=== PATIENT | male | born 1945 | race Caucasian/White ===

== ENCOUNTER 2021-02-17 11:21 | Inpatient (IN) | payer MEDICARE, SELFPAY ==
--- NOTE | ~2021-02-17 | CT_ITS ---
EXAMINATION: CT HEAD WITHOUT CONTRAST CLINICAL INFORMATION: Syncope. Rule out intracranial hemorrhage. COMPARISON: None TECHNIQUE: Contiguous axial imaging was performed from the skull base to vertex without intravenous administration of contrast. This CT examination was performed using dose optimization techniques as appropriate, variously including the following: *Automated exposure control *Adjustment of mA and/or kV according to patient size (this includes techniques or standardized protocols for targeted exams where dose is matched to indication/reason for exam; i.e. extremities or head) *Use of iterative reconstruction technique DLP: 795 mGy-cm FINDINGS: There is no evidence of acute intracranial hemorrhage or territorial infarction. No abnormal mass effect or midline shift is seen. Rahman to white matter differentiation is well preserved. No extra-axial fluid collections are identified. The lateral ventricles are symmetrical in size but mildly enlarged. Mild perivesical hypodensity seen in both cerebral hemispheres without mass effect. The osseous structures and soft tissues are normal. The mastoid air cells and visualized portions of the paranasal sinuses are well aerated. CT/CT head/brain wo con IMPRESSION: No acute intracranial process seen.
--- NOTE | ~2021-02-17 | XR_ITS ---
EXAMINATION: XR chest 2V CLINICAL INFORMATION: Reason for Exam syncope, SOB COMPARISON: No prior chest x-ray available in our system for comparison at the time of this dictation. TECHNIQUE: XR chest 2V Lungs and Liat: Both lungs are clear. Pleura: Normal. Costophrenic angles are sharp. No pneumothorax. Heart: The heart is normal in size. Mediastinum: The mediastinum is within normal limits.. Bones: Skeletal structures included are normal for patient's age. XR/XR chest 2V IMPRESSION: Normal chest x-ray.
--- NOTE | ~2021-02-17 | CT_ITS ---
EXAMINATION: CT CHEST ANGIOGRAM PE PROTOCOL CLINICAL INFORMATION: , Reason for Exam Syncope r/o PE COMPARISON: None TECHNIQUE: Volumetric imaging was performed through the chest. Reformatted coronal and sagittal imaging was performed. 3-D MIP images performed at a dedicated separate workstation. This CT examination was performed using dose optimization techniques as appropriate, variously including the following: *Automated exposure control *Adjustment of mA and/or kV according to patient size (this includes techniques or standardized protocols for targeted exams where dose is matched to indication/reason for exam; i.e. extremities or head) *Use of iterative reconstruction technique CONTRAST: 65 mL Omnipaque 350 injected DLP: 195 FINDINGS: PULMONARY ARTERIES: Ill-defined filling defect in a branch of the right pulmonary artery to the right upper lobe concerning for possible subacute embolus versus artifact. Image 210 series 19. Ill-defined hypodense area within the right pulmonary artery to the right lower lobe on image 339 series 19 indeterminant and could be artifact versus nonocclusive embolus. There is also probably a small nonocclusive embolus in a branch of left pulmonary artery to left lower lobe, refer image of 327 series 19. LINES/TUBES: None LUNGS: Lung Parenchyma: There is no CT evidence of significant lung parenchymal disease. Lung Nodules:There are no significant lung nodules. AIRWAYS: Trachea and bronchi are normal. PLEURA: No pleural effusion or pneumothorax. MEDIASTINUM AND BRANDON: The visualized thyroid gland is unremarkable. No mediastinal, hilar or axillary lymphadenopathy. There is no mediastinal mass. VESSELS: Thoracic aorta is normal in size. HEART AND PERICARDIUM: Heart is normal in size. There is no pericardial effusion. There are coronary calcifications. CHEST WALL, LOWER NECK, SURROUNDING SOFT TISSUES: Normal VISUALIZED ABDOMEN: There is a 3 cm cystic structure partially included on this CT chest, otherwise unremarkable. BONES: The visualized bony thorax is within normal limits. CT/CT angio chest PE protocol IMPRESSION: 1. Positive PE, there are multiple Small nonocclusive emboli could be old. Some of which are artifactual. Díaz images. 2. No CT evidence of cardiac strain or pulmonary infarcts. 3. There is a 3 cm cystic structure partially included left kidney could be a renal cyst, consider correlation with follow-up renal ultrasound. (Referring physician staff is being called, to be alerted of the above findings and recommendations.) Ramon Euceda
--- NOTE | ~2021-02-17 | US_ITS ---
EXAMINATION: US VENOUS ULTRASOUND WITH DOPPLER LOWER EXTREMITY, BILATERAL CLINICAL INFORMATION: Bilateral legs appear negative for DVT COMPARISON: None TECHNIQUE: Ultrasound of the deep veins is performed from the hip to the calf with compression sonography and color and pulse Doppler assessment. Spectral analysis with color-flow imaging is performed. FINDINGS: RIGHT: There is normal venous compression and respiratory variation and augmented flow. The visualized common femoral vein, superficial femoral vein, profunda femoral vein, popliteal vein, and the trifurcation region shows no evidence of deep venous thrombosis. There is no significant popliteal fossa cyst. LEFT: There is normal venous compression and respiratory variation and augmented flow. The visualized common femoral vein, superficial femoral vein, profunda femoral vein, popliteal vein, and the trifurcation region shows no evidence of deep venous thrombosis. There is no significant popliteal fossa cyst. If the patient's symptoms persist, followup ultrasound in 5 days 7 days might be of value to exclude proximal propagation from a non-visualized calf vein. US/US venous duplex LE BI IMPRESSION: No DVT demonstrated in the bilateral lower extremity.
--- NOTE | 2021-02-17 11:36 | ECG_ITS ---
Test Reason : SYNCOPY Blood Pressure : / mmHG Vent. Rate : 063 BPM Atrial Rate : 063 BPM P-R Int : 180 ms QRS Dur : 104 ms QT Int : 422 ms P-R-T Axes : 051 -08 035 degrees QTc Int : 431 ms Normal sinus rhythm Normal ECG No previous ECGs available Referred By: Pat Jimenez Electronically Signed By:AUREA ASHRAF
--- NOTE | 2021-02-17 11:38 | ED_ITS ---
HPI - Syncope General Chief Complaint: Syncope Stated Complaint: syncopal episodes Time Seen by Provider: 02/17/21 11:36 Source: patient Mode of arrival: ambulatory Limitations: no limitations History of Present Illness HPI narrative: 75-year-old male pmhx significant for DM, HTN, HLD presents to the ED with near syncope X1 syncope X1 prior to his arrival. According to patient's daughter she was outside, cutting wood, she states he claims he became dizzy, like he could not balance, he also became very sweaty and sat down. After sitting down, he leaned up against a tree, and fell over to the ground. She states he did not hit his head, he did not lose consciousness however he appeared confused and sweaty. Once the ambulance arrived, he syncopized on the stretcher, EMS states that they gave him a sternal rub, which awoke him. He states he is feeling fine, however, he states he is a little more sweaty than usual. He is usually very active, and has never had this happen to him in the past. He denies shortness of breath, chest pain, nasuea, vomiting, headaches, vision changes, weakness, fevers, and chills. MD complaint: other (syncope) Prodromal symptoms: lightheaded Witnessed: Yes - by Bystander (daughter ) Context: at rest Injuries sustained associated with event: none Related Data Home Medications Medication Instructions Recorded Confirmed atorvastatin 20 mg tablet 1 tab PO BEDTIME 02/17/21 02/17/21 brimonidine 0.2 % eye drops 1 drp OPHTHALMIC (EYE) Q12H 02/17/21 02/17/21 lisinopril 20 1 tab PO DAILY 02/17/21 02/17/21 mg-hydrochlorothiazide 12.5 mg tablet metformin 500 mg tablet,extended 1 tab PO BID 02/17/21 02/17/21 release 24 hr Allergies Allergy/AdvReac Type Severity Reaction Status Date / Time No Known Allergies Allergy Unverified 02/02/20 15:19 [No Known Allergies*] Review of Systems Review of Systems: Yes all other systems are reviewed and are negative Constitutional: Constitutional: Reports no additional constitutional complaints, Denies body ache(s), Denies chills, Reports excessive sweating, Denies fever(s), Denies headache(s) and Denies weakness Eyes: Eyes: Reports no additional eye complaints and Denies change in vision ENT: Reports system reviewed and no additional complaints, except as documented, Reports dizziness, Denies headache(s), Denies nasal congestion, Denies nasal discharge and Denies neck pain Cardiovascular: Cardiovascular: Reports no additional cardiovascular complaints, Denies chest pain, Reports syncope, Denies leg edema and Denies dyspnea Respiratory: Respiratory: Reports no additional respiratory complaints, Denies cough and Denies dyspnea Gastrointestinal: Gastrointestinal: Reports no additional gastrointestinal complaints, Denies abdominal pain, Denies diarrhea, Denies nausea and Denies vomiting Genitourinary: Genitourinary: Denies urinary incontinence Musculoskeletal: Musculoskeletal: Reports no additional musculoskeletal complaints, Denies back pain, Denies arthralgias, Denies joint swelling, Denies neck pain, Denies numbness and Denies tingling Integumentary/Breasts: Skin/Breast: Reports system reviewed and no additional complaints, except as docu and Denies rash Neurologic: Reports system reviewed and no additional complaints, except as documented, Denies Abnormal speech present, Reports dizziness, Reports syncope, Denies headache(s), Denies numbness, Denies tingling and Denies weakness Endocrine: Endocrine: Reports excessive sweating PMFSH Past Medical History Attestation statement: The following information was validated with the patient. Source: old records reviewed and nursing notes reviewed Medical History (Updated 02/17/21 @ 17:04 by Pat Jimenez NP) Diabetes mellitus H/O: HTN (hypertension) Hyperlipidemia Surgical History (Updated 02/17/21 @ 16:45 by Jena Blackmon NP) H/O hernia repair S/P cataract extraction and insertion of intraocular lens Family History Family History (Updated 02/17/21 @ 16:45 by Jena Blackmon NP) Mother Hemorrhagic stroke Father Coronary artery disease Social History Social History (Updated 02/17/21 @ 16:45 by Jena Blackmon NP) Household Members: Spouse Alcohol intake: never Patient Tobacco Use Status: Never used Tobacco Use of substances other than those prescribed or required for medical reasons: No Advance Directives: Yes Advance Directives on File: No Physical Exam Vital Signs: Vital Signs: Last Vital Signs Temp 97.8 F 02/17/21 14:44 Pulse 67 02/17/21 14:44 Resp 19 02/17/21 14:44 BP 116/56 L 02/17/21 14:44 Pulse Ox 98 02/17/21 14:44 Body Mass Index 31.8 Const: General: cooperative, no acute distress, tired appearing and other (diaphoretic ) Nutritional Appearance: obese Orientation/consciousness: patient oriented x3 Limitations: no limitations HENMT: Head: Yes normal to inspection Ears: hearing grossly normal bilaterally General nose exam: Normal external nose present Face and sinus: Yes normal facial exam Mouth: Normal oral and palatal mucosa present Throat: Yes posterior oropharynx normal Eyes: General: appearance normal, both eyes and all related structures Pupils: Equal, round and reactive pupils present Neck: Neck: Yes normal visual inspection Chest: Chest palpation & inspection: normal inspection of the chest Resp: Effort & Inspection: normal respiratory effort Auscultation: clear to auscultation bilaterally Cardio: Rate: regular rate Rhythm: regular rhythm Peripheral pulses: Peripheral pulses 2+ throughout GI: Inspection: Yes normal to inspection Palpation (GI): Soft to palpation and nontender Auscultation: normal bowel sounds Back/Spine/Pelvis: Thoracic/Lumbar Spine: thoracic and lumbar spine normal to inspection Skin: General skin exam: no rashes or lesions noted and other (diaphoretic ) Neuro: General: patient oriented x3, no focal motor deficits and normal sensation to monofilament Cranial nerves: Yes Equal, round and reactive pupils present Cognition (Neuro): normal cognition Speech: No Abnormal speech present Gait exam (Neuro): Normal gait present Motor exam (neuro): 5/5 motor strength present throughout and Pronator motor function not present Coordination: [id number] test normal and [id number] test normal Extrem: General: Yes normal to inspection Course Course Course Narrative: 75-year-old male pmhx significant for DM, HTN, HLD presents to the ED with one episode of near sycnope and one episode of syncope. He reports that he felt dizzy while outside cutting wood and he had to sit down and take a break at that point he had his near syncopal episode. He syncopized while on the stretcher with EMS, necessitating a sternal rub to wake him up. At this time he reports no SOB,CP,YUSUF, vision changes. He does however note he is more sweaty than usual. He did not fall or hit his head. Upon physical examination diaphoresis is noted. He is alert and oriented x3 Low MAP X2. patient is alert and oriented. This is likely secondary to dehydration and or orthostasis. Not concerned for infection at this time, he is currently afibrile no elevated WBC count. Reevaluation(s) Reevaluation #1: CTA positive for multiple small PE, no evidence of saddle PE. Second trop pending. Will give 90 mg of SQ lovenox now. Plan is to admit the patient for syncope and new PE. This is likely not ACS, EKG is normal and patient still denies chest pain and states he never felt pain in his chest. Time: 15:22 Reevaluation #2: Second troponin 12.9 Will admit this patient for PE and syncope. MDM - Syncope MDM Narrative Medical decision making narrative: At this time it is unclear why the patient had a syncopal episode. For this reason a full work up will be done. Will rule out ACS, PE, ICH, electrolyte abnormalities, dysrhythmia, and anemia. Fluids will also be ordered and a POC will be done to r/o hypoglycemia. Medical Records Attestation: I reviewed the patient's medical records. Lab Data Attestation: I reviewed the patient's lab results. Result diagrams: 02/17/21 12:09 02/17/21 12:09 Labs: Lab Results 02/17/21 02/17/21 02/17/21 Range/Units 12:09 12:09 12:09 WBC 10.0 (4.8-10.8) X10*3/uL RBC 4.63 (4.60-5.80) X10*6/uL Hgb 12.9 L (14.0-18.0) g/dl Hct 38.3 L (42-52) % MCV 82.7 (80-98) fL MCH 27.9 (27.0-33.0) pg MCHC 33.7 (31.0-36.0) g/dl RDW 12.6 (11.0-16.0) % Plt Count 204 (160-400) X10*3/uL MPV 8.9 L (9.4-12.4) fL Immature Gran % (Auto) 0.5 H (0.0-0.4) % Neut % (Auto) 73.7 H (45-73) % Lymph % (Auto) 19.6 L (20-40) % [place] % (Auto) 5.3 (2-11) % Eos % (Auto) 0.7 (0-4) % Baso % (Auto) 0.2 (0-2) % Lymph # (Auto) 2.0 (1.2-4.9) X10*3/uL [place] # (Auto) 0.5 (0.1-1.2) X10*3/uL Eos # (Auto) 0.1 (0.0-0.4) X10*3/uL Baso # (Auto) 0.0 (0.0-0.2) X10*3/uL Abs Immat Gran (auto) 0.05 H (0.00-0.03) X10*3/uL Absolute Neuts (auto) 7.4 (2.0-8.3) X10*3/uL Absolute Nucleated RBC 0.000 (0.0-0.012) X10*3/uL Nucleated RBC % (auto) 0.0 (0.0-0.2) /100WBC PT (9.9-13.0) SEC INR (0.9-1.1) APTT (24.1-38.0) SEC Sodium 140 (135-145) mmol/L Potassium 3.5 (3.3-5.1) mmol/L Chloride 103 (96-108) mmol/L Carbon Dioxide 25 (22-29) mmol/L Anion Gap 16 (12-20) BUN 18 H (9-16) mg/dL Creatinine 1.14 (0.5-1.4) mg/dL Estim Creat Clear Calc 59.6 Estimated GFR > 60 Random Glucose 177 H (60-115) mg/dL Calcium 9.5 (8.4-10.2) mg/dL Magnesium 1.5 L (1.6-2.6) mg/dL Total Bilirubin 0.7 (0.0-1.0) mg/dL Direct Bilirubin 0.3 (0.0-0.5) mg/dL AST 22 (5-37) U/L ALT 35 (0-40) U/L Alkaline Phosphatase 48 (39-117) U/L Troponin I High Sens 6.4 (<3.5-35.0) ng/L Total Protein 6.7 (6.5-8.0) g/dL Albumin 4.2 (3.5-5.0) g/dL Urine Color Urine Appearance Urine pH (5.0-8.0) Ur Specific [place] (1.005-1.025) Urine Protein (NEG-TRACE) MG/DL Urine Glucose (UA) (NEG) MG/DL Urine Ketones (NEG) MG/DL Urine Blood (NEG) Urine Nitrite (NEG) Ur Leukocyte Esterase (NEG) COVID-19 (ADONAY) (Negative) COVID-19 Clin Com 02/17/21 02/17/21 02/17/21 Range/Units 12:09 15:05 15:10 WBC (4.8-10.8) X10*3/uL RBC (4.60-5.80) X10*6/uL Hgb (14.0-18.0) g/dl Hct (42-52) % MCV (80-98) fL MCH (27.0-33.0) pg MCHC (31.0-36.0) g/dl RDW (11.0-16.0) % Plt Count (160-400) X10*3/uL MPV (9.4-12.4) fL Immature Gran % (Auto) (0.0-0.4) % Neut % (Auto) (45-73) % Lymph % (Auto) (20-40) % [place] % (Auto) (2-11) % Eos % (Auto) (0-4) % Baso % (Auto) (0-2) % Lymph # (Auto) (1.2-4.9) X10*3/uL [place] # (Auto) (0.1-1.2) X10*3/uL Eos # (Auto) (0.0-0.4) X10*3/uL Baso # (Auto) (0.0-0.2) X10*3/uL Abs Immat Gran (auto) (0.00-0.03) X10*3/uL Absolute Neuts (auto) (2.0-8.3) X10*3/uL Absolute Nucleated RBC (0.0-0.012) X10*3/uL Nucleated RBC % (auto) (0.0-0.2) /100WBC PT (9.9-13.0) SEC INR (0.9-1.1) APTT (24.1-38.0) SEC Sodium (135-145) mmol/L Potassium (3.3-5.1) mmol/L Chloride (96-108) mmol/L Carbon Dioxide (22-29) mmol/L Anion Gap (12-20) BUN (9-16) mg/dL Creatinine (0.5-1.4) mg/dL Estim Creat Clear Calc Estimated GFR Random Glucose (60-115) mg/dL Calcium (8.4-10.2) mg/dL Magnesium (1.6-2.6) mg/dL Total Bilirubin (0.0-1.0) mg/dL Direct Bilirubin (0.0-0.5) mg/dL AST (5-37) U/L ALT (0-40) U/L Alkaline Phosphatase (39-117) U/L Troponin I High Sens 12.9 D (<3.5-35.0) ng/L Total Protein (6.5-8.0) g/dL Albumin (3.5-5.0) g/dL Urine Color YELLOW Urine Appearance CLEAR Urine pH 5.5 (5.0-8.0) Ur Specific [place] 1.010 (1.005-1.025) Urine Protein NEG (NEG-TRACE) MG/DL Urine Glucose (UA) NEG (NEG) MG/DL Urine Ketones 5 (NEG) MG/DL Urine Blood NEG (NEG) Urine Nitrite NEG (NEG) Ur Leukocyte Esterase NEG (NEG) COVID-19 (ADONAY) Negative (Negative) COVID-19 Clin Com See Note 02/17/21 Range/Units 16:00 WBC (4.8-10.8) X10*3/uL RBC (4.60-5.80) X10*6/uL Hgb (14.0-18.0) g/dl Hct (42-52) % MCV (80-98) fL MCH (27.0-33.0) pg MCHC (31.0-36.0) g/dl RDW (11.0-16.0) % Plt Count (160-400) X10*3/uL MPV (9.4-12.4) fL Immature Gran % (Auto) (0.0-0.4) % Neut % (Auto) (45-73) % Lymph % (Auto) (20-40) % [place] % (Auto) (2-11) % Eos % (Auto) (0-4) % Baso % (Auto) (0-2) % Lymph # (Auto) (1.2-4.9) X10*3/uL [place] # (Auto) (0.1-1.2) X10*3/uL Eos # (Auto) (0.0-0.4) X10*3/uL Baso # (Auto) (0.0-0.2) X10*3/uL Abs Immat Gran (auto) (0.00-0.03) X10*3/uL Absolute Neuts (auto) (2.0-8.3) X10*3/uL Absolute Nucleated RBC (0.0-0.012) X10*3/uL Nucleated RBC % (auto) (0.0-0.2) /100WBC PT 11.6 (9.9-13.0) SEC INR 1.0 (0.9-1.1) APTT 30.2 (24.1-38.0) SEC Sodium (135-145) mmol/L Potassium (3.3-5.1) mmol/L Chloride (96-108) mmol/L Carbon Dioxide (22-29) mmol/L Anion Gap (12-20) BUN (9-16) mg/dL Creatinine (0.5-1.4) mg/dL Estim Creat Clear Calc Estimated GFR Random Glucose (60-115) mg/dL Calcium (8.4-10.2) mg/dL Magnesium (1.6-2.6) mg/dL Total Bilirubin (0.0-1.0) mg/dL Direct Bilirubin (0.0-0.5) mg/dL AST (5-37) U/L ALT (0-40) U/L Alkaline Phosphatase (39-117) U/L Troponin I High Sens (<3.5-35.0) ng/L Total Protein (6.5-8.0) g/dL Albumin (3.5-5.0) g/dL Urine Color Urine Appearance Urine pH (5.0-8.0) Ur Specific [place] (1.005-1.025) Urine Protein (NEG-TRACE) MG/DL Urine Glucose (UA) (NEG) MG/DL Urine Ketones (NEG) MG/DL Urine Blood (NEG) Urine Nitrite (NEG) Ur Leukocyte Esterase (NEG) COVID-19 (ADONAY) (Negative) COVID-19 Clin Com Imaging Data Chest x-ray: Attestation: I personally reviewed and interpreted this imaging study as follows: Radiologist's impression: IMPRESSION: Normal chest x-ray. CT scan - chest: Attestation: I personally reviewed and interpreted this imaging study as follows: Radiologist's impression: FINDINGS: PULMONARY ARTERIES: Ill-defined filling defect in a branch of the right pulmonary artery to the right upper lobe concerning for possible subacute embolus versus artifact. Image 210 series 19. Ill-defined hypodense area within the right pulmonary artery to the right lower lobe on image 339 series 19 indeterminant and could be artifact versus nonocclusive embolus. There is also probably a small nonocclusive embolus in a branch of left pulmonary artery to left lower lobe, refer image of 327 series 19. LINES/TUBES: None LUNGS: Lung Parenchyma: There is no CT evidence of significant lung parenchymal disease. Lung Nodules:There are no significant lung nodules. AIRWAYS: Trachea and bronchi are normal. PLEURA: No pleural effusion or pneumothorax. MEDIASTINUM AND BRANDON: The visualized thyroid gland is unremarkable. No mediastinal, hilar or axillary lymphadenopathy. ? There is no mediastinal mass. VESSELS: Thoracic aorta is normal in size. HEART AND PERICARDIUM: Heart is normal in size. There is no pericardial effusion. There are coronary calcifications. CHEST WALL, LOWER NECK, SURROUNDING SOFT TISSUES: Normal VISUALIZED ABDOMEN: There is a 3 cm cystic structure partially included on this CT chest, otherwise unremarkable. BONES: The visualized bony thorax is within normal limits. CT/CT angio chest PE protocol IMPRESSION: ? 1. Positive PE, there are multiple Small nonocclusive emboli could be old. Some of which are artifactual. Díaz images. ? 2. No CT evidence of cardiac strain or pulmonary infarcts. ? 3. There is a 3 cm cystic structure partially included left kidney could be a renal cyst, consider correlation with follow-up renal ultrasound. ? (Referring physician staff is being called, to be alerted of the above findings and recommendations.) ? CT scan - head: Attestation: I personally reviewed and interpreted this imaging study as follows: Radiologist's impression: FINDINGS: There is no evidence of acute intracranial hemorrhage or territorial infarction. No abnormal mass effect or midline shift is seen. Rahman to white matter differentiation is well preserved. No extra-axial fluid collections are identified. The lateral ventricles are symmetrical in size but mildly enlarged. Mild perivesical hypodensity seen in both cerebral hemispheres without mass effect. The osseous structures and soft tissues are normal. The mastoid air cells and visualized portions of the paranasal sinuses are well aerated. ? CT/CT head/brain wo con IMPRESSION: No acute intracranial process seen. ECG Data Attestation: I personally reviewed and interpreted this ECG as follows: ECG interpretation date: 02/17/21 ECG interpretation time: 11:45 Prior ECG tracings: not available for review Interpretation: Ventricular rate of 63. SD interval normal, QRS normal, QT/QTC normal. EKG shows normal sinus rhythm. No ST elevations, no T-wave inversions. No signs of acute ischemia. There is no previous EKG to compare with. Discharge Plan Discharge Clinical Impression: Pulmonary embolism, Syncope, Hypomagnesemia Patient Disposition: Admitted As Inpatient
[2021-02-17 11:43] VITALS: BP 100/70; BP 95/43; PULSE 65; PULSE 66; RESP 14; TEMP 36.4; O2SAT 94; O2SAT 95; BMI 31.8
[2021-02-17 11:55] VITALS: BP 102/46; BP 90/48; BP 96/45; PULSE 60; PULSE 65; PULSE 74
[2021-02-17] MEDS: 0.9 % Sodium Chloride 1,000 ML 999 ML IV (12:06)
[2021-02-17 12:16] LABS: MANUAL DIFF FLAG NO
[2021-02-17 12:17] LABS: Basophils Percent Auto 0.2 % (0-2); Eosinophils Absolute Auto 0.1 X10*3/uL (0.0-0.4); Eosinophils Percent Auto 0.7 % (0-4); Hematocrit 38.3 % (42-52); Hemoglobin 12.9 g/dl (14.0-18.0); Imm Gran Abs Auto 0.05 X10*3/uL (0.00-0.03); Imm Gran Pct Auto 0.5 % (0.0-0.4); Lymphocytes Percent Auto 19.6 % (20-40); Mean Corpuscular HGB Conc 33.7 g/dl (31.0-36.0); Mean Corpuscular Hemoglobin 27.9 pg (27.0-33.0); Mean Corpuscular Volume 82.7 fL (80-98); Mean Platelet Volume 8.9 fL (9.4-12.4); Monocytes Absolute Auto 0.5 X10*3/uL (0.1-1.2); Monocytes Percent Auto 5.3 % (2-11); Neutrophils Absolute Auto 7.4 X10*3/uL (2.0-8.3); Neutrophils Percent Auto 73.7 % (45-73); Platelet Count 204 X10*3/uL (160-400); Red Blood Count 4.63 X10*6/uL (4.60-5.80); Red Cell Distribution Width 12.6 % (11.0-16.0)
[2021-02-17 12:37] LABS: COVID-19 Test Negative (Negative)
[2021-02-17 12:40] LABS: Alanine Aminotransferase 35 U/L (0-40); Albumin Level 4.2 g/dL (3.5-5.0); Alkaline Phosphatase 48 U/L (39-117); Anion Gap 16 (12-20); Aspartate Amino Transferase 22 U/L (5-37); Bilirubin Direct 0.3 mg/dL (0.0-0.5); Bilirubin Total 0.7 mg/dL (0.0-1.0); Blood Urea Nitrogen 18 mg/dL (9-16); Calcium 9.5 mg/dL (8.4-10.2); Carbon Dioxide 25 mmol/L (22-29); Chloride 103 mmol/L (96-108); Creatinine Clr Calc Pharmacy 59.6; Estimated Glomerular Filt Rate > 60; Glucose Random 177 mg/dL (60-115); Magnesium 1.5 mg/dL (1.6-2.6); Potassium 3.5 mmol/L (3.3-5.1); Sodium 140 mmol/L (135-145); Total Protein 6.7 g/dL (6.5-8.0)
[2021-02-17 12:43] LABS: Troponin-I High Sensitivity 6.4 ng/L (<3.5-35.0)
[2021-02-17] MEDS: iohexoL 350 MG/ML 100 ML INFUS..BTL IV (14:12)
[2021-02-17 14:44] VITALS: BP 116/56; PULSE 66; PULSE 67; RESP 19; TEMP 36.6; O2SAT 98
[2021-02-17] MEDS: Magnesium Sulfate/D5W 1 GM/100 ML PIGGYBACK IV (14:49)
[2021-02-17 15:16] LABS: Appearance Urine CLEAR; Color Urine YELLOW; Glucose Urine UA NEG (NEG); Leukocyte Esterase Urine NEG (NEG); Nitrite Urine NEG (NEG); PH 5.5 (5.0-8.0); Urine Blood NEG (NEG); Urine Ketones 5 MG/DL (NEG); Urine Protein NEG (NEG-TRACE)
[2021-02-17 15:36] LABS: Troponin-I High Sensitivity 12.9 ng/L (<3.5-35.0)
[2021-02-17] MEDS: Enoxaparin Sodium 100 MG/ML SYRINGE 90 MG SUBCUT (15:53)
--- NOTE | 2021-02-17 16:09 | PM.IMHP ---
History of Present Illness Date of Service: 02/17/21 Attending physician on admission: Jose Coats 75 year old man presenting after an epsiode of syncope after cutting wood outside. Apparently he started to feel dizzy , diaphoretic and he leaned on a tree that was next to him and then lowered himself to the ground. He remained dizzy but did not lose consciousness. His daughter was there and witnessed the episode. She called for EMS. When EMS arrived the patient did have a syncopal episode requiring sternal rub regain consciousness fairly quickly. He reported that he is usually very active however on Thursday he did only plate 9 rounds of golf and he usually completes the entire game but he felt not like himself. Other than that he had been in his usual state of health. He denied recent travel on an airplane or long car ride, sedentary lifestyle. He denied chest pain, shortness of breath, nausea, vomiting or diarrhea. In the ER, chest CTA was obtained which showed multiple small nonocclusive emboli without cardiac strain or pulmonary infarcts. He was started on therapeutic Lovenox. Head CT was negative for any acute abnormality. Magnesium was noted to be low at 1.5, he was given 2 g of IV magnesium. Initial troponin was 6.4 with repeat of 12.9 with no acute ischemic changes on EKG. COVID-19 negative. Blood pressure initially was noted to be on the low side. He will be admitted for further management of new onset PE and syncope. Review of Systems Review of Systems: Denies any recent fever chills or decrease in appetite respiratory denies any shortness of breath coverage production cardiovascular Denies chest pain gastrointestinal denies any dysphagia abdominal pain nausea vomiting or diarrhea genitourinary denies any dysuria frequency or hematuria musculoskeletal denies any joint pain or swelling neuropsych denies any weakness or seizures all other systems reviewed are negative [facility] Medical History (Updated 02/17/21 @ 16:14 by Jena Blackmon NP) Diabetes mellitus H/O: HTN (hypertension) Hyperlipidemia Family History (Updated 02/17/21 @ 16:45 by Jena Blackmon NP) Mother Hemorrhagic stroke Father Coronary artery disease Pertinent family history: . Surgical History (Updated 02/17/21 @ 16:45 by Jena Blackmon NP) H/O hernia repair S/P cataract extraction and insertion of intraocular lens Social History (Updated 02/17/21 @ 16:45 by Jena Blackmon NP) Household Members: Spouse Alcohol intake: never Patient Tobacco Use Status: Never used Tobacco Use of substances other than those prescribed or required for medical reasons: No Advance Directives: Yes Advance Directives on File: No Meds Allergies Allergy/AdvReac Type Severity Reaction Status Date / Time No Known Allergies Allergy Unverified 02/02/20 15:19 [No Known Allergies*] Active Medications: Current Medications Acetaminophen (Acetaminophen 325 Mg Tablet) 650 mg PO Q6H PRN PRN Reason: Pain, Mild (Pain Scale 1-3) Ondansetron HCl (Ondansetron Hcl 4 Mg/2 Ml Vial) 4 mg IVPUSH Q8H PRN PRN Reason: Nausea and Vomiting Sodium Chloride (0.9 % Sodium Chloride Flush 3 Ml Syringe) 3 ml IVFLUSH QSHIShriners Children's Medications Medication Instructions Recorded Confirmed Last Taken Type atorvastatin 20 mg tablet 1 tab PO BEDTIME 02/17/21 02/17/21 Unknown History brimonidine 0.2 % eye drops 1 drp OPHTHALMIC (EYE) Q12H 02/17/21 02/17/21 Unknown History lisinopril 20 1 tab PO DAILY 02/17/21 02/17/21 Unknown History mg-hydrochlorothiazide 12.5 mg tablet metformin 500 mg tablet,extended 1 tab PO BID 02/17/21 02/17/21 Unknown History release 24 hr Physical Exam Vital Signs and Narrative: Vital Signs: Last Vital Signs Temp 97.8 F 02/17/21 14:44 Pulse 67 02/17/21 14:44 Resp 19 02/17/21 14:44 BP 116/56 L 02/17/21 14:44 Pulse Ox 98 02/17/21 14:44 Body Mass Index 31.8 Appearing in no acute distress head is normocephalic atraumatic eyes pupils are PERRLA sclera is anicteric mouth throat mucous membranes are intact and moist neck is supple no lymphadenopathy, no JVD noted lung sounds are clear to auscultation heart regular rate rhythm, clear S1, S2 positive bowel sounds, abdomen is soft, nontender neuro patient is alert x3, no focal deficits Results Labs CBC and Chem 7: 02/17/21 12:09 02/17/21 12:09 Labs: Laboratory Results - last 24 hr 02/17/21 02/17/21 02/17/21 12:09 12:09 12:09 MCV 82.7 MCH 27.9 MCHC 33.7 RDW 12.6 Plt Count 204 MPV 8.9 L Immature Gran % (Auto) 0.5 H Neut % (Auto) 73.7 H Lymph % (Auto) 19.6 L [place] % (Auto) 5.3 Eos % (Auto) 0.7 Baso % (Auto) 0.2 Lymph # (Auto) 2.0 [place] # (Auto) 0.5 Eos # (Auto) 0.1 Baso # (Auto) 0.0 Abs Immat Gran (auto) 0.05 H Absolute Neuts (auto) 7.4 Absolute Nucleated RBC 0.000 Nucleated RBC % (auto) 0.0 Anion Gap 16 Estim Creat Clear Calc 59.6 Estimated GFR > 60 Random Glucose 177 H Calcium 9.5 Magnesium 1.5 L Total Bilirubin 0.7 Direct Bilirubin 0.3 AST 22 ALT 35 Alkaline Phosphatase 48 Troponin I High Sens 6.4 Total Protein 6.7 Albumin 4.2 Urine Color Urine Appearance Urine pH Ur Specific [place] Urine Protein Urine Glucose (UA) Urine Ketones Urine Blood Urine Nitrite Ur Leukocyte Esterase COVID-19 (ADONAY) COVID-19 Clin Com 02/17/21 02/17/21 02/17/21 12:09 15:05 15:10 MCV MCH MCHC RDW Plt Count MPV Immature Gran % (Auto) Neut % (Auto) Lymph % (Auto) [place] % (Auto) Eos % (Auto) Baso % (Auto) Lymph # (Auto) [place] # (Auto) Eos # (Auto) Baso # (Auto) Abs Immat Gran (auto) Absolute Neuts (auto) Absolute Nucleated RBC Nucleated RBC % (auto) Anion Gap Estim Creat Clear Calc Estimated GFR Random Glucose Calcium Magnesium Total Bilirubin Direct Bilirubin AST ALT Alkaline Phosphatase Troponin I High Sens 12.9 D Total Protein Albumin Urine Color YELLOW Urine Appearance CLEAR Urine pH 5.5 Ur Specific [place] 1.010 Urine Protein NEG Urine Glucose (UA) NEG Urine Ketones 5 Urine Blood NEG Urine Nitrite NEG Ur Leukocyte Esterase NEG COVID-19 (ADONAY) Negative COVID-19 Clin Com See Note Imaging Radiologist's Impressions: Impressions Chest X-Ray 02/17/21 11:37 IMPRESSION: Normal chest x-ray. Chest CTA 02/17/21 11:49 IMPRESSION: 1. Positive PE, there are multiple Small nonocclusive emboli could be old. Some of which are artifactual. Díaz images. 2. No CT evidence of cardiac strain or pulmonary infarcts. 3. There is a 3 cm cystic structure partially included left kidney could be a renal cyst, consider correlation with follow-up renal ultrasound. (Referring physician staff is being called, to be alerted of the above findings and recommendations.) A J Head CT 02/17/21 11:49 IMPRESSION: No acute intracranial process seen. Assessment and Plan (1) Pulmonary embolism: Status: Acute (2) Syncope: Status: Acute (3) Hypomagnesemia: Status: Acute 75 year old man admitted with new PE and syncope Pulmonary embolism. New onset, unprovoked Supplemental oxygen as needed Therapeutic Lovenox Hypercoag workup Hematology consult echocardiogram Syncope. possibly secondary to PE vs hypotension monitor on telemetry for arrythmia check orthostatic BP Hold BP medications for now Hypomagnesemia Repleted with IV magnesium trend Diabetes sliding scale ADA diet Check A1C Hypertension stable/low BP, hold antihypertensives for now in light of syncope Hyperlipidemia continue statin DVT prophylaxis with therapeutic Lovenox Attending Dr. Coats Full code Quality Stroke Does the patient have a stroke diagnosis?: No VTE Prior VTE?: No VTE Risk Level:: Medical - moderate - high VTE Device Contraindication: Treatment Not Indicated VTE Drug Contraindication: N/A - Med Ordered
[2021-02-17 16:15] LABS: Prothrombin Time 11.6 SEC (9.9-13.0)
[2021-02-17 16:18] LABS: Partial Thromboplastin Time 30.2 SEC (24.1-38.0)
--- NOTE | 2021-02-17 18:13 | PC.NURSE ---
call to [facility], rn to call back
--- NOTE | 2021-02-17 18:22 | PC.NURSE ---
report given to [facility]
[2021-02-17 20:00] VITALS: BP 105/49; PULSE 56; RESP 18; TEMP 36.6; O2SAT 97
[2021-02-17] MEDS: Atorvastatin Calcium 20 MG TABLET PO (21:16)
[2021-02-17] MEDS: Brimonidine Tartrate 0.2% Oph 5 ML BOTTLE 1 DROP EYE-BOTH (21:16)
[2021-02-17] MEDS: 0.9 % Sodium Chloride Flush 3 ML SYRINGE IVFLUSH (21:16)
--- NOTE | 2021-02-17 23:20 | PC.NURSE ---
patient going bradycardic to 49 while sleeping, will come back up to 55. woken up multiple times, hr comes back to 65-78. pt asymptomatic, no c/o chest pain, dizziness or SOB.
[2021-02-18] VITALS (10 sets, daily range): BP systolic 109–140; BP diastolic 42–71; PULSE 52–71; RESP 18–19; TEMP 36.4–37.2; O2SAT 95–98
[2021-02-18 03:39] LABS: Estimated Average Glucose 154 mg/dL
[2021-02-18] MEDS: Enoxaparin Sodium 100 MG/ML SYRINGE 90 MG SUBCUT (04:10)
[2021-02-18 06:05] LABS: MANUAL DIFF FLAG NO
[2021-02-18 06:12] LABS: Basophils Percent Auto 0.2 % (0-2); Eosinophils Absolute Auto 0.2 X10*3/uL (0.0-0.4); Eosinophils Percent Auto 1.7 % (0-4); Hematocrit 35.4 % (42-52); Hemoglobin 11.9 g/dl (14.0-18.0); Imm Gran Abs Auto 0.04 X10*3/uL (0.00-0.03); Imm Gran Pct Auto 0.4 % (0.0-0.4); Lymphocytes Absolute Auto 3.1 X10*3/uL (1.2-4.9); Lymphocytes Percent Auto 31.4 % (20-40); Mean Corpuscular HGB Conc 33.6 g/dl (31.0-36.0); Mean Corpuscular Hemoglobin 27.8 pg (27.0-33.0); Mean Corpuscular Volume 82.7 fL (80-98); Mean Platelet Volume 9.3 fL (9.4-12.4); Monocytes Absolute Auto 0.8 X10*3/uL (0.1-1.2); Monocytes Percent Auto 7.8 % (2-11); Neutrophils Absolute Auto 5.7 X10*3/uL (2.0-8.3); Neutrophils Percent Auto 58.5 % (45-73); Platelet Count 198 X10*3/uL (160-400); Red Blood Count 4.28 X10*6/uL (4.60-5.80); Red Cell Distribution Width 12.5 % (11.0-16.0); White Blood Count 9.7 X10*3/uL (4.8-10.8)
[2021-02-18 06:29] LABS: Anion Gap 10 (12-20); Blood Urea Nitrogen 12 mg/dL (9-16); Calcium 8.9 mg/dL (8.4-10.2); Carbon Dioxide 28 mmol/L (22-29); Chloride 104 mmol/L (96-108); Creatinine Clr Calc Pharmacy 73.9; Estimated Glomerular Filt Rate > 60; Glucose Random 146 mg/dL (60-115); Potassium 3.8 mmol/L (3.3-5.1); Sodium 138 mmol/L (135-145)
[2021-02-18] MEDS: 0.9 % Sodium Chloride Flush 3 ML SYRINGE IVFLUSH (09:53)
[2021-02-18] MEDS: Brimonidine Tartrate 0.2% Oph 5 ML BOTTLE 1 DROP EYE-BOTH (09:53)
--- NOTE | 2021-02-18 11:07 | MHC.CM.PN ---
CM met with Patient at bedside and addressed IMM with him, providing him with the original and placing a copy on the chart. Patient lives in a house with his and he is functionally independent. Patient's goal is to return home/no services and CM has initiated and will follow for dc planning. PCP is Dr. Ina Larios.
[2021-02-18 13:35] LABS: PTT (LAC) Screen 34 sec (< OR = 40)
--- NOTE | 2021-02-18 14:00 | CA_ITS ---
Transthoracic Echocardiogram Patient (Last, First, Middle): Alexandr Mckeon J Gender: Male Date of : 1945 Age: 75 Procedure Date: 02/18/2021 Procedure Type: Transthoracic Echocardiogram Location: [facility] [place] Height: 170.18 cm Weight: 92.08 kg BSA: 2.03 m2 Heart Rate: bpm BP: 109 / 42 mmHg Director Trial: Referring MD: Jena Blackmon NP Symptoms: New PE Study Quality: Good Conclusions: - Normal left ventricular size and systolic function. - E/E prime ratio is between 8 and 15 consistent with indeterminate filling pressures. - Mildly increased right ventricular cavity size. There is normal right ventricular systolic function. - There is mild tricuspid valve regurgitation. Normal right atrial pressure. There is no evidence of pulmonary hypertension. Findings Left Ventricle Normal left ventricular size and systolic function. There is mildly increased left ventricular wall thickness. The visually estimated ejection fraction is between 55-60%. There is no evidence of regional wall motion abnormalities. Abnormal diastolic function is noted. Spectral Doppler is indicative of an impaired relaxation filling pattern. E/E prime ratio is between 8 and 15 consistent with indeterminate filling pressures. Right Ventricle Mildly increased right ventricular cavity size. There is normal right ventricular systolic function. Atria The left atrium was not well visualized. The right atrium was not well visualized. Aortic Valve The aortic valve was not well visualized. Mitral Valve Normal mitral valve structure and function. There is no mitral valve regurgitation. There is no mitral valve stenosis. Pulmonic Valve The pulmonic valve is likely normal. Tricuspid Valve Normal tricuspid valve structure. There is mild tricuspid valve regurgitation. Normal right atrial pressure. There is no evidence of pulmonary hypertension. Great Vessels The pulmonary artery was not well visualized. Venous The inferior vena cava is normal in size and collapses greater than 50% with inspiration. Pericardium/Pleural There is no evidence of pericardial effusion. Prior Study Comparison No prior study available for comparison. Measurements 2D Linear Measurements IVSd: 1.28 0.6-0.9/0.6-1.0 cm LVIDd: 4.81 3.9-5.3/4.2-5.9 cm LVIDd Index: 2.37 2.4-3.2/2.2-3.1 cm/m2 LVIDs: 2.97 2.0-3.6 cm LVPWd: 1.21 0.7-1.1 cm LV Mass: 288.84 67-162/88-224 g LV Mass Index: 142.29 43-95/49-115 g/m2 2D Systolic Function EF 4C: 58.90 >55% EF 2C: 58.30 >55% EF BiP: 58.00 >55% Mitral Valve MV Pk E: 0.66 MV PK A: 0.92 MV Decel Time: 269.00 E/A: 0.70 E'Lateral: 9.36 E'Medial: 6.74 E/E' Med: 9.80 E/E' Lat: 7.10 PHT: 79.00 MVA PHT: 2.78 Decel [place]: 2.45 Diastolic Function MV Pk E: 0.66 MV Pk A: 0.92 E/A: 0.70 E'Medial: 6.74 E/E' Med: 9.80 E' Laterial: 9.36 E/E' Lat: 7.10 Tricuspid Valve TR Pk Job: 2.69 TR Pk Grad: 29.00 RVSP: 33.00 Updated in Other Vendor System with Status of Final Anthony Moore MD electronically signed on 02/18/2021 3:37:05 PM with status of Final
--- NOTE | 2021-02-18 15:10 | P.DS_ITS ---
DS: Providers Provider Date of Service: 02/18/21 Date of admission: 02/17/21 16:05 Primary care physician: Ina Larios MD Consults: 02/17/21 16:48 Consult to Hematology / Oncology Routine Consulting Provider: Jyoti Rodrigues Reason for consultation: new onset PE unprovoked Has provider been notified: No Attending physician on discharge: Robbin Shepard Discharging clinician: Jena Blackmon DS: Diagnosis Discharge Diagnosis (1) Pulmonary embolism: Status: Acute (2) Syncope: Status: Acute (3) Hypomagnesemia: Status: Acute DS: Summary Hospital Course Hospital Course: 75 year old man presenting after an epsiode of syncope after cutting wood outside.? Apparently he started to feel dizzy , diaphoretic and he leaned on a tree that was next to him and then lowered himself to the ground.? He remained dizzy but did not lose consciousness.? His daughter was there and witnessed the episode.? She called for EMS. ? When EMS arrived the patient did have a syncopal episode requiring sternal rub regain consciousness fairly quickly.? He reported that he is usually very active however on Thursday he did only plate 9 rounds of golf and he usually completes the entire game but he felt not like himself.? Other than that he had been in his usual state of health. ? He denied recent travel on an airplane or long car ride, sedentary lifestyle. He denied chest pain, shortness of breath, nausea, vomiting or diarrhea. ? In the ER, chest CTA was obtained which showed multiple small nonocclusive emboli without cardiac strain or pulmonary infarcts.? He was started on therapeutic Lovenox.? Head CT was negative for any acute abnormality.? Magnesium was noted to be low at 1.5, he was given 2 g of IV magnesium.? Initial troponin was 6.4 with repeat of 12.9 with no acute ischemic changes on EKG.? COVID-19 negative.? Blood pressure initially was noted to be on the low side. He will be admitted for further management of new onset PE and syncope. New onset pulmonary embolism. Unprovoked. Chest CT a obtained due to syncope and showed multiple small nonocclusive emboli noted acute versus subacute without evidence heart strain or pulmonary infarction. Also no heart strain on echo cardiogram noted. Patient was initially started on therapeutic Lovenox and switched to Xarelto which he will continue for the next 6 months. He will follow up with Hematology in the office for lab results results regarding hypercoagulable workup. Syncope. Likely secondary to hypotension as pulmonary embolus is not causing any heart strain. Will hold lisinopril/hydrochlorothiazide and patient can follow up with his primary care provider regarding medication management 1st blood pressure. Time Spent with Patient Time attestation: Total time spent providing and/or coordinating discharge services: Discharge coordination time: Greater than 30 minutes Quality: Stroke Does the patient have a stroke diagnosis?: No Physical Exam Vital Signs: Vital Signs: Last Vital Signs Temp 97.6 F 02/18/21 11:08 Pulse 57 02/18/21 11:08 Resp 18 02/18/21 11:08 BP 115/55 L 02/18/21 11:08 Pulse Ox 97 02/18/21 11:08 Body Mass Index 31.8 Appearing in no acute distress head is normocephalic atraumatic eyes pupils are PERRLA sclera is anicteric mouth throat mucous membranes are intact and moist neck is supple no lymphadenopathy, no JVD noted lung sounds are clear to auscultation heart regular rate rhythm, clear S1, S2 positive bowel sounds, abdomen is soft, nontender neuro patient is alert x3, no focal deficits DS: Data Data Completed and Pending Labs on day of discharge: Laboratory Results - last 24 hr 02/17/21 02/17/21 02/17/21 12:09 15:05 15:10 WBC RBC Hgb Hct MCV MCH MCHC RDW Plt Count MPV Immature Gran % (Auto) Neut % (Auto) Lymph % (Auto) Foster % (Auto) Eos % (Auto) Baso % (Auto) Lymph # (Auto) Foster # (Auto) Eos # (Auto) Baso # (Auto) Abs Immat Gran (auto) Absolute Neuts (auto) Absolute Nucleated RBC Nucleated RBC % (auto) PT INR APTT LA PTT Screen LA Thrombin Time dRVV Screen dRVVT Confirm Interp dRVVT Mixing Study dRVVT Mix Interpret Hexagon Phase Neutraliz Lupus Anticoag Interp Sodium Potassium Chloride Carbon Dioxide Anion Gap BUN Creatinine Estim Creat Clear Calc Estimated GFR Random Glucose Estimat Average Glucose 154 Hemoglobin A1c % 7.0 Calcium Troponin I High Sens 12.9 D Urine Color YELLOW Urine Appearance CLEAR Urine pH 5.5 Ur Specific [place] 1.010 Urine Protein NEG Urine Glucose (UA) NEG Urine Ketones 5 Urine Blood NEG Urine Nitrite NEG Ur Leukocyte Esterase NEG 02/17/21 02/17/21 02/18/21 16:00 16:38 05:43 WBC 9.7 RBC 4.28 L Hgb 11.9 L Hct 35.4 L MCV 82.7 MCH 27.8 MCHC 33.6 RDW 12.5 Plt Count 198 MPV 9.3 L Immature Gran % (Auto) 0.4 Neut % (Auto) 58.5 Lymph % (Auto) 31.4 Foster % (Auto) 7.8 Eos % (Auto) 1.7 Baso % (Auto) 0.2 Lymph # (Auto) 3.1 Foster # (Auto) 0.8 Eos # (Auto) 0.2 Baso # (Auto) 0.0 Abs Immat Gran (auto) 0.04 H Absolute Neuts (auto) 5.7 Absolute Nucleated RBC 0.000 Nucleated RBC % (auto) 0.0 PT 11.6 INR 1.0 APTT 30.2 LA PTT Screen 34 LA Thrombin Time TNP dRVV Screen 37 dRVVT Confirm Interp TNP dRVVT Mixing Study TNP dRVVT Mix Interpret TNP Hexagon Phase Neutraliz TNP Lupus Anticoag Interp SEE NOTE Sodium Potassium Chloride Carbon Dioxide Anion Gap BUN Creatinine Estim Creat Clear Calc Estimated GFR Random Glucose Estimat Average Glucose Hemoglobin A1c % Calcium Troponin I High Sens Urine Color Urine Appearance Urine pH Ur Specific [place] Urine Protein Urine Glucose (UA) Urine Ketones Urine Blood Urine Nitrite Ur Leukocyte Esterase 02/18/21 05:43 WBC RBC Hgb Hct MCV MCH MCHC RDW Plt Count MPV Immature Gran % (Auto) Neut % (Auto) Lymph % (Auto) Foster % (Auto) Eos % (Auto) Baso % (Auto) Lymph # (Auto) Foster # (Auto) Eos # (Auto) Baso # (Auto) Abs Immat Gran (auto) Absolute Neuts (auto) Absolute Nucleated RBC Nucleated RBC % (auto) PT INR APTT LA PTT Screen LA Thrombin Time dRVV Screen dRVVT Confirm Interp dRVVT Mixing Study dRVVT Mix Interpret Hexagon Phase Neutraliz Lupus Anticoag Interp Sodium 138 Potassium 3.8 Chloride 104 Carbon Dioxide 28 Anion Gap 10 L BUN 12 Creatinine 0.92 Estim Creat Clear Calc 73.9 Estimated GFR > 60 Random Glucose 146 H Estimat Average Glucose Hemoglobin A1c % Calcium 8.9 D Troponin I High Sens Urine Color Urine Appearance Urine pH Ur Specific [place] Urine Protein Urine Glucose (UA) Urine Ketones Urine Blood Urine Nitrite Ur Leukocyte Esterase Discharge Plan Discharge Anticipated Discharge Date/Time: 02/18/21 10:41 Patient Disposition: Home, Self-Care Discharge Diagnosis: Pulmonary embolism Syncope Referrals: Ina Larios MD [Primary Care Provider] - 1 Week Jyoti Rodrigues MD [Physician] - 1 Week (Follow up labs and xarelto management ) Discharge Medications: New Xarelto 15 mg Tablet 15 mg PO BIDWM 21 Days Qty: 42 RF: 0 Xarelto 20 mg tablet 20 mg PO DAILY Qty: 30 RF: 0 Continued atorvastatin 20 mg tablet 1 tab PO BEDTIME RF: 0 brimonidine 0.2 % drops 1 drp ophthalmic (eye) Q12H RF: 0 metformin 500 mg tablet extended release 24 hr 1 tab PO BID RF: 0 Discontinued lisinopril-hydrochlorothiazide 20-12.5 mg tablet 1 tab PO DAILY RF: 0 Discharge Orders: Discharge Order (Routine); Ordered 02/18/21 Ordered By: Jena Blackmon Diet: advance to usual diet Activity on Discharge: As tolerated Stand Alone Forms: Patient Portal Discharge page Care Plan Goals: Resolution of PE Health Concerns: Pulmonary embolism Syncope Plan of Treatment: Continue medication for pulmonary embolism as prescribed Your blood pressure medication is being held due to low blood pressure when you were admitted. Please follow up with your primary care provider regarding medi cation management. Assessment: See discharge summary
--- NOTE | 2021-02-18 15:49 | MHC.CM.PN ---
Patient has been medically cleared for dc to home today, no services., IMM addressed with Patient this morning.
[2021-02-19 16:46] LABS: Homocysteine 10.7 umol/L (<11.4)
[2021-02-20 13:01] LABS: Cardiolipin IgG Ab <2.0 GPL-U/mL; Cardiolipin IgM Ab 2.3 MPL-U/mL
[2021-02-20 20:22] LABS: Anti-Thrombin III Antigen 78 % (80-120)
[2021-02-22 20:06] LABS: Prothrombin 20210A NEGATIVE
== END 2021-02-18 16:45 | disposition home or self-care (01) | DRG 176 ==
LOC: HO.ED 12:01 → HO.EDOVER 16:15 → HO.IMC 17:52
PROVIDERS: Nurse Practitioner Family; Admitting Provider Nurse Practitioner Acute Care; Emergency Provider Internal Medicine; PCP Internal Medicine; Visit Provider Nurse Practitioner Acute Care
DX: I26.99 Other pulmonary embolism without acute cor pulmonale (principal); E78.5 Hyperlipidemia, unspecified; E83.42 Hypomagnesemia; E11.9 Type 2 diabetes mellitus without complications; Z23 Encounter for immunization; Z20.822 Contact with and (suspected) exposure to COVID-19; Z79.84 Long term (current) use of oral hypoglycemic drugs; Z79.899 Other long term (current) drug therapy
CPT/HCPCS: 36415; 70450; 71046; 71275; 80048; 80076; 81003; 81240; 83036; 83090; 83735; 84484; 85025; 85301; 85597; 85610; 85613; 85730; 86147; 87635; 90471; 90686; 93005; 93308; 93970; 99285; J1650; J3475; Q9967

== ENCOUNTER 2021-09-28 11:10 | Emergency (ER) | payer MEDICARE, SELFPAY ==
--- NOTE | ~2021-09-28 | XR_ITS ---
EXAMINATION: CR X-RAY KNEE AND TIBIA/FIBULA LEFT CLINICAL INFORMATION: Left knee and leg pain status post tree branch injury. COMPARISON: None TECHNIQUE: 4 views of the left knee and 2 views of the left tibia/fibula were obtained. FINDINGS: A longitudinal linear lucency is seen through the lateral tibial plateau extending from the joint surface distally to the metaphysis. There is a nondisplaced transverse fracture of the proximal fibular metaphysis. The medial tibial plateau, distal femur and patella are intact. The distal tibia and fibula and left ankle joint are intact. There is a small suprapatellar joint effusion. The soft tissues are unremarkable. XR/XR knee LT 4V IMPRESSION: 1. Acute, nondisplaced intra-articular longitudinal lateral tibial plateau fracture and nondisplaced proximal fibular metaphyseal fracture. 2. Small suprapatellar joint effusion.
--- NOTE | ~2021-09-28 | CT_ITS ---
EXAMINATION: CT WITHOUT CONTRAST KNEE, LEFT CLINICAL INFORMATION: Tibial plateau fracture COMPARISON: Same day radiographs TECHNIQUE: A noncontrast CT of the left knee is performed with sagittal and coronal reformats. This CT examination was performed using dose optimization techniques as appropriate, variously including the following: *Automated exposure control *Adjustment of mA and/or kV according to patient size (this includes techniques or standardized protocols for targeted exams where dose is matched to indication/reason for exam; i.e. extremities or head) *Use of iterative reconstruction technique DLP: [id number] FINDINGS: Comminuted impacted fracture of the lateral tibial plateau with up to 5 mm of surface depression at the central aspect. A vertically oriented fracture line extends to the lateral tibial metaphysis and along the tibiofibular joint. Hairline fractures also extend along the lateral tibial spine with no definite extension beyond midline. There is a moderate lipohemarthrosis. There is also a nondisplaced fracture of the fibular head. CT/CT knee LT wo con IMPRESSION: Complex impacted lateral tibial plateau fracture as described with a moderate lipohemarthrosis. Nondisplaced fibular head fracture.
--- NOTE | ~2021-09-28 | XR_ITS ---
EXAMINATION: CR X-RAY KNEE AND TIBIA/FIBULA LEFT CLINICAL INFORMATION: Left knee and leg pain status post tree branch injury. COMPARISON: None TECHNIQUE: 4 views of the left knee and 2 views of the left tibia/fibula were obtained. FINDINGS: A longitudinal linear lucency is seen through the lateral tibial plateau extending from the joint surface distally to the metaphysis. There is a nondisplaced transverse fracture of the proximal fibular metaphysis. The medial tibial plateau, distal femur and patella are intact. The distal tibia and fibula and left ankle joint are intact. There is a small suprapatellar joint effusion. The soft tissues are unremarkable. XR/XR tibia fibula LT 2V IMPRESSION: 1. Acute, nondisplaced intra-articular longitudinal lateral tibial plateau fracture and nondisplaced proximal fibular metaphyseal fracture. 2. Small suprapatellar joint effusion.
[2021-09-28 11:22] VITALS: BP 106/65; BP 123/56; PULSE 64; RESP 16; TEMP 36.4; O2SAT 98; BMI 33.3
--- NOTE | 2021-09-28 11:45 | ED_ITS ---
HPI - Extremity Injury (Lower) General Chief Complaint: Trauma Stated Complaint: knee pain Time Seen by Provider: 09/28/21 11:17 Source: patient, family and EMS Mode of arrival: EMS Limitations: no limitations History of Present Illness HPI Narrative: 76-year-old male with a past medical history of diabetes, hypertension, hyperlipidemia who is currently on Xarelto for a pulmonary embolism presenting to the ED via EMS after he sustained a knee injury while he was cutting a tree branch when the tree branch came back towards him when he cut it and impacted his left knee/ lower leg. He was able to stay standing he never actually fell to the ground. He reports he has mild pain when he palpates it. Although reports full range of motion and able to completely walking it. Denies head injury loss of consciousness or actually falling to the ground or any other injuries complaints or concerns at this time. complaint: knee injury Onset (ago): minute(s) ( Prior to arrival) Injury: Left: knee Type of Injury: blunt Place: street/outdoors ( while cutting a tree) Severity: mild Relieving factors: nothing Exacerbating factors: palpation Context: direct blow ( when he cut the tree the tree came back and impacted him to the left knee /leg) Associated symptoms: ambulatory Other symptoms: none Related Data Home Medications Medication Instructions Recorded Confirmed atorvastatin 20 mg tablet 1 tab PO BEDTIME 02/17/21 05/31/21 brimonidine 0.2 % eye drops 1 drp OPHTHALMIC (EYE) Q12H 02/17/21 05/31/21 metformin 500 mg tablet,extended 1 tab PO BID 02/17/21 05/31/21 release 24 hr Previous Rx's Medication Instructions Recorded rivaroxaban 20 mg tablet (Xarelto) 20 mg PO DAILY #30 tab 02/22/21 acetaminophen 500 mg tablet 1,000 mg PO QID PRN #14 tab 09/28/21 (Tylenol Extra Strength) Allergies Allergy/AdvReac Type Severity Reaction Status Date / Time No Known Allergies Allergy Verified 05/31/21 15:34 [No Known Allergies*] Review of Systems Review of Systems: Constitutional : No Fever, No Chills ENT/Mouth : No Ear Pain, No Hoarseness, No sore throat Eyes: No Eye Pain, No Swelling, No Redness, No Foreign Body Cardiovascular : No Chest Pain, No SOB Respiratory : No Cough, No Dyspnea Gastrointestinal : No Nausea, No Vomiting, No Diarrhea, No abdominal Pain Genitourinary : No Dysuria, No Hematuria Musculoskeletal : + left knee joint pain, No Myalgias, No Joint Swelling Skin : No Skin lacerations, No rash Neuro : No Weakness, No Numbness, No Paresthesias, No Loss of Consciousness, No Dizziness, No Headache Psych : No Anxiety/Panic, No Depression Heme/Lymph: no easy bruising, no Lymphadenopathy Endocrine : No Polyuria, No Polydipsia Yes all other systems are reviewed and are negative [facility] Past Medical History Attestation statement: The following information was validated with the patient. Medical History Diabetes mellitus H/O: HTN (hypertension) Hyperlipidemia Surgical History H/O hernia repair S/P cataract extraction and insertion of intraocular lens Family History Family History Mother Hemorrhagic stroke Father Coronary artery disease Social History Social History Household Members: Spouse Housing: House Alcohol intake: former Patient Tobacco Use Status: Former Tobacco user Quit Date: 40 years ago Tobacco use type: Cigarette Advance Directives: Yes Advance Directives Information Provided: No Advance Directives on File: No service: No Current occupational status: retired Physical Exam Vital Signs: Vital Signs: Last Vital Signs Temp 97.5 F 09/28/21 15:39 Pulse 72 09/28/21 15:39 Resp 16 09/28/21 15:39 BP 130/67 09/28/21 15:39 Pulse Ox 98 09/28/21 15:39 BMI result Body Mass Index 33.3 vital signs have been reviewed as normal and appeared to be correct. Blood pressure 123/56. Heart rate normal. Respiration rate normal. Temperature normal. Oxygen saturation normal. Appearance: Alert. Oriented X3. No acute distress. Head: Normal external exam. Normocephalic. Atraumatic. No Mckinley signs noted. No raccoon eyes noted Eyes: PERRLA. EOMI. Conjunctiva and sclera normal. Eyelids normal. ENT: Pharynx normal. Uvula midline. Moist mucous membranes. Normal voice. No trismus noted. No drooling noted. No muffled voice noted. Neck: Normal inspection. Neck supple. FROM. No adenopathy. Thyroid Normal. No meningeal signs. No neck mass noted. No signs of trauma noted. CVS: Normal heart rate and rhythm. Heart sound normal. Pulses normal throughout. No murmurs/rales/gallops. Respiratory: No respiratory distress. Painless inspiration. Breath sounds normal. No wheezes/rales/rhonchi noted. Chest nontender. No crepitus is noted. No signs of trauma noted. No accessory muscle usage noted or decreased air movement noted. Abdomen: Soft and nontender. Bowel sounds normal in all 4 quadrants. No dist ention noted. No organomegaly noted. No visible injury noted. Back: Full range of motion noted. Nontender. No signs of trauma. Skin: Skin warm and dry. Normal skin color. Normal skin turgor. No rashes/lesions/lacerations noted. Extremities: Patient mild tenderness palpation to the left lateral aspect of the knee /proximal aspect of the tibia/ fibula with mild soft tissue swelling and ecchymosis noted. No foreign bodies noted. Patient has full range of motion of the left knee/ hip/ ankle joint. No obvious deformities are noted. No obvious ligamentous or tendon injury noted. No muscle rupture is noted. No lower extremity edema. No calf tenderness is noted. Otherwise all other Extremities exhibit normal range of motion and nontender. Neuro: Oriented X 3. No motor deficit. No sensory deficit. Reflexes normal. Normal steady gait. No focal neuro deficits noted. CN's II-XII intact bilaterally? Vascular: + radial pulses/+ 2 distal pedal pulses/+2 dorsalis pedis b/l. Normal cap refill. No cyanosis noted to upper extremity nails and lower extremity toes nails. Course Course Course Narrative: 11:30am - 76-year-old male with a past medical history of diabetes, hypertension, hyperlipidemia who is currently on Xarelto for a pulmonary embolism presenting to the ED via EMS after he sustained a knee injury while he was cutting a tree branch when the tree branch came back towards him when he cut it and impacted his left knee/ lower leg. He was able to stay standing he never actually fell to the ground. He reports he has mild pain when he palpates it. Although reports full range of motion and able to completely walking it. Denies head injury loss of consciousness or actually falling to the ground or any other injuries complaints or concerns at this time. Plan: Will obtain a left knee x-ray provide 975 mg of Tylenol and re-evaluate. Reevaluation(s) Reevaluation #1: - patient with acute nondisplaced intra-articular longer to lateral tibial plateau fracture and nondisplaced proximal fibular metaphyseal fracture along with a small suprapatellar joint effusion otherwise no other acute processes noted. Will place patient in a knee immobilizer and provide crutches. Consult ed with orthopedic TRANG Whyte for further recommendations. Patient and family at bedside updated and they understand. Time: 12:48 Reevaluation #2: Isabell the orthopedic PA reported that the patient can be discharged with nonweightbearing in a knee immobilizer and crutches as long as pain is in controlled and the patient will continue to be nonweightbearing although she is requesting a CT scan of the left knee / tibia fibula before discharge. Patient and family at bedside understand and agreeable to this plan patient would rather be discharged he reports. Time: 12:53 Reevaluation #3: CT scan results sent to orthopedics and they still reports that the patient can be discharged with nonweightbearing pain control and crutches and patient is able to use the crutches with the knee immobilizer and nonweightbearing therefore instructed family and patient to call Orthopedics within a week for follow-up and evaluation and to return if any new or worsening symptoms. Patient and family at bedside understand agree this plan. Time: 16:42 MDM - Extremity Injury (Lower) Medical Records Attestation: I reviewed the patient's medical records. Imaging Data left knee/ tibia /fibula x-ray: Attestation: I personally reviewed and interpreted this imaging study as follows: Radiologist's impression: FINDINGS: A longitudinal linear lucency is seen through the lateral tibial plateau extending from the joint surface distally to the metaphysis. There is a nondisplaced transverse fracture of the proximal fibular metaphysis. The medial tibial plateau, distal femur and patella are intact. The distal tibia and fibula and left ankle joint are intact. There is a small suprapatellar joint effusion. The soft tissues are unremarkable. XR/XR tibia fibula LT 2V IMPRESSION: 1. Acute, nondisplaced intra-articular longitudinal lateral tibial plateau fracture and nondisplaced proximal fibular metaphyseal fracture. 2. Small suprapatellar joint effusion. CT scan of left knee: Attestation: I personally reviewed and interpreted this imaging study as follows: Radiologist's impression: FINDINGS: Comminuted impacted fracture of the lateral tibial plateau with up to 5 mm of surface depression at the central aspect. A vertically oriented fracture line extends to the lateral tibial metaphysis and along the tibiofibular joint. Hairline fractures also extend along the lateral tibial spine with no definite extension beyond midline. There is a moderate lipohemarthrosis. There is also a nondisplaced fracture of the fibular head.? CT/CT knee LT wo con IMPRESSION: Complex impacted lateral tibial plateau fracture as described with a moderate lipohemarthrosis. Nondisplaced fibular head fracture.? Discharge Plan Discharge Clinical Impression: Closed fracture of tibial plateau Qualifiers: Encounter type: initial encounter Laterality: left Qualified Code(s): S82.142A - Displaced bicondylar fracture of left tibia, initial encounter for closed fracture Closed left fibular fracture Qualifiers: Encounter type: initial encounter Fibula location: proximal Patient Disposition: Home, Self-Care Instructions: Leg Fracture (ED), Crutch Instructions (ED), Knee Immobilizer (ED) Prescriptions: New acetaminophen [Tylenol Extra Strength] 500 mg tablet 1,000 mg PO QID PRN (Reason: fever or pain) Qty: 14 0RF No Action atorvastatin 20 mg tablet 1 tab PO BEDTIME 0RF brimonidine 0.2 % drops 1 drp ophthalmic (eye) Q12H 0RF metformin 500 mg tablet extended release 24 hr 1 tab PO BID 0RF Xarelto 20 mg tablet 20 mg PO DAILY Qty: 30 0RF Rx Instructions: must administer with evening meal Take 15mg twice daily for 21 days then take 20 mg daily Referrals: Ina Larios MD [Primary Care Provider] - 2 days Malik Herring MD [Physician] - 1 week ( call on Thursday to make a follow-up appointment within 1 week) Print Language: Kyrgyz
[2021-09-28] MEDS: Acetaminophen 325 MG TABLET 975 MG PO (12:27)
[2021-09-28 15:39] VITALS: BP 130/67; PULSE 72; RESP 16; TEMP 36.4; O2SAT 98
--- NOTE | 2021-09-28 15:44 | PC.NURSE ---
KNEE IMMOBILIZER APPLY TO PATIENT LEFT KNEE.
[2021-09-28 17:09] VITALS: BP 130/67; PULSE 72; RESP 16; TEMP 36.3
== END 2021-09-28 17:11 | disposition home or self-care (01) ==
PROVIDERS: Emergency Provider Emergency Medicine; PCP Internal Medicine
DX: S82.142A Displaced bicondylar fracture of left tibia, initial encounter for closed fracture (principal); S89.202A Unspecified physeal fracture of upper end of left fibula, initial encounter for closed fracture; E11.9 Type 2 diabetes mellitus without complications; I10 Essential (primary) hypertension; Z86.711 Personal history of pulmonary embolism; Z79.01 Long term (current) use of anticoagulants; W20.8XXA Other cause of strike by thrown, projected or falling object, initial encounter; Y93.89 Activity, other specified; Y92.89 Other specified places as the place of occurrence of the external cause; Y99.0 Civilian activity done for income or pay
CPT/HCPCS: 73564; 73590; 73700; 99284

== ENCOUNTER 2022-03-03 10:03 | Day surgery (SDC) | payer MEDICARE, SELFPAY ==
[2022-02-25 13:14] VITALS: BMI 31.8
--- NOTE | 2022-02-27 15:34 | MHC.SHP ---
Pre-Procedural Eval Section A Date of Service: 02/27/22 The patient is an INPATIENT: No Changes since office visit: No Cold of Flu in the past 2 weeks, No New Medical Problems, No Changes in Medication and No Patient answered all questions The History & Physical has been completed within 30 days and I have reviewed it.: Yes Section B Chief Complaint: Senile entropion of right lower eyelid,Senile entr Allergies: Allergies Allergy/AdvReac Type Severity Reaction Status Date / Time No Known Allergies Allergy Verified 05/31/21 15:34 [No Known Allergies*] Plan Diagnosis/Plan: Unchanged I have reviewed the history and physical and performed a pertinent physical examination on my patient. No changes have occurred unless specified.
--- NOTE | 2022-02-28 09:02 | HO.ANESPROP2 ---
Documented by User: Jayda Ramsey NP 02/28/22 09:04 HPI - Anesthesia Eval Consult details Narrative: 76yo M for Bilateral Entropion Repair lower lids PCP cleared Xarelto for hx PE PMFSH Active Problems Active Problems: All Active Problems (Updated 02/25/22 @ 13:02 by Valencia Wilson RN) Pulmonary embolism (Chronic) Past Medical History Medical History Diabetes mellitus Hard of hearing HTN (hypertension) Hyperlipidemia On anticoagulant therapy Family History Family History Mother Hemorrhagic stroke Father Coronary artery disease Surgical History Surgical History History of umbilical hernia repair Hx of bilateral inguinal hernia repair S/P cataract extraction and insertion of intraocular lens Social History Social History Household Members: Spouse Housing: House Are you a primary child care education coordinator to a significant other at home: No Do you presently have visiting nurse or other home services: No Alcohol intake: former Patient Tobacco Use Status: Former Tobacco user Quit Date: 40 yrs ago Tobacco use type: Cigarette Use of substances other than those prescribed or required for medical reasons: No Have you been hit, kicked, punched, or otherwise hurt by someone within the past year? If so, by whom?: No Are you DNR?: No Advance Directives: No Advance Directives Information Provided: Yes Advance Directives on File: No Recently lost weight without trying: No Eating poorly because of decreased appetite: No Nutrition Risks: No Nutritional Risk service: No Current occupational status: retired [employer] Allergies Allergy/AdvReac Type Severity Reaction Status Date / Time No Known Allergies Allergy Verified 03/03/22 13:32 [No Known Allergies*] Home Medications Medication Instructions Recorded Confirmed Last Taken Type atorvastatin 20 mg tablet 1 tab PO BEDTIME 02/17/21 02/25/22 Unknown History brimonidine 0.2 % eye drops 1 drp ophthalmic (eye) Q12H 02/17/21 02/25/22 Unknown History metformin 500 mg tablet,extended 1 tab PO BID 02/17/21 02/25/22 Unknown History release 24 hr amlodipine 5 mg tablet 1 tab PO DAILY 01/30/22 02/25/22 Unknown History hydrochlorothiazide 12.5 mg tablet 1 tab PO QAM 01/30/22 02/25/22 Unknown History lisinopril 10 mg tablet 1 tab PO DAILY 01/30/22 02/25/22 Unknown History multivitamin with minerals 1 cap PO DAILY 02/25/22 02/25/22 Unknown History omega 0-tjh-vqs-fish oil 1,000 mg 1 cap PO DAILY 02/25/22 02/25/22 Unknown History (120 mg-180 mg) capsule (Fish Oil) Exam Exam Date and Time: February 28, 2022 09 Height,Weight and Vital Signs: Height 5 ft 8 in Weight 94.9 kg Assessment and Plan Assessment Anesthesia Assessment: Chart Reviewed Documented by User: Jerrell Cortes MD 03/03/22 13:51 [facility] Past Medical History Medical History Diabetes mellitus Hard of hearing HTN (hypertension) Hyperlipidemia On anticoagulant therapy Family History Family History Mother Hemorrhagic stroke Father Coronary artery disease Family history of problems with anesthesia: No Surgical History Surgical History History of umbilical hernia repair Hx of bilateral inguinal hernia repair S/P cataract extraction and insertion of intraocular lens History of Problems with Anesthesia: No Social History Social History Household Members: Spouse Housing: House Are you a primary child care education coordinator to a significant other at home: No Do you presently have visiting nurse or other home services: No Alcohol intake: former Patient Tobacco Use Status: Former Tobacco user Quit Date: 40 yrs ago Tobacco use type: Cigarette Use of substances other than those prescribed or required for medical reasons: No Have you been hit, kicked, punched, or otherwise hurt by someone within the past year? If so, by whom?: No Are you DNR?: No Advance Directives: No Advance Directives Information Provided: Yes Advance Directives on File: No Recently lost weight without trying: No Eating poorly because of decreased appetite: No Nutrition Risks: No Nutritional Risk service: No Current occupational status: retired Meds Allergies Allergy/AdvReac Type Severity Reaction Status Date / Time No Known Allergies Allergy Verified 03/03/22 13:32 [No Known Allergies*] Home Medications Medication Instructions Recorded Confirmed Last Taken Type atorvastatin 20 mg tablet 1 tab PO BEDTIME 02/17/21 02/25/22 Unknown History brimonidine 0.2 % eye drops 1 drp ophthalmic (eye) Q12H 02/17/21 02/25/22 Unknown History metformin 500 mg tablet,extended 1 tab PO BID 02/17/21 02/25/22 Unknown History release 24 hr amlodipine 5 mg tablet 1 tab PO DAILY 01/30/22 02/25/22 Unknown History hydrochlorothiazide 12.5 mg tablet 1 tab PO QAM 01/30/22 02/25/22 Unknown History lisinopril 10 mg tablet 1 tab PO DAILY 01/30/22 02/25/22 Unknown History multivitamin with minerals 1 cap PO DAILY 02/25/22 02/25/22 Unknown History omega 2-kqo-ugz-fish oil 1,000 mg 1 cap PO DAILY 02/25/22 02/25/22 Unknown History (120 mg-180 mg) capsule (Fish Oil) Exam Airway Mallampati Class: II TM Dist: >3cm Neck ROM: Full Denture: Upper and Lower Loose/Missing/Broken Teeth: Yes Heart: irreg irreg s1s2 Lungs: cta b/l Assessment and Plan Assessment Anesthesia Assessment: Anesthesia Plan Discussed Final Anesthetic Review Family History of Problems with Anesthesia: No History of Problems with Anesthesia: No NPO: Yes ASA Class: III Final Preanesthetic Review: No Changes in Pt Med Stat, Meds/Allgs Chart Reviewed, Consent Obtained/Reviewed and Anes Risks/Benef Reviewed Patient Risk: Intermediate Procedure Risk: Low Assessment/Block/Sedation in SS: Assess/Block/Sedation-SS Anesthetic Plan Anesthetic Plan: MAC: and Agree w/ Assess. and Plan Disposition: Standard PACU
[2022-03-03 13:01] VITALS: BP 153/67; PULSE 58; RESP 18; TEMP 36.6; O2SAT 98
[2022-03-03 13:12] LABS: Glucose, Whole Blood 121 mg/dL (60-115)
[2022-03-03] MEDS: Lactated Ringers 500 ML 50 ML IV (13:26)
--- NOTE | 2022-03-03 14:16 | HO.PNOPHT ---
Ophthalmology Procedure Procedure Date of Service: 03/03/22 Ophthalmology Viscoelastic: Not Applicable Ophthalmology Lenses: Not Applicable Procedure Notes: PREOPERATIVE DIAGNOSIS: Bilateral lower lid entropion POSTOPERATIVE DIAGNOSIS: Same PROCEDURE:Bilateral lateral tarsal strip SURGEON: Huber Villanueva M.D. ANESTHESIA: MAC with Local ESTIMATED BLOOD LOSS: None COMPLICATIONS: None After obtaining informed consent, the patient was brought to the operating room suite, placed in supine position. After adequate sedation per Anesthesia, a local injection of 2% Lidocaine was given temporally to the right periorbital area. A canthotomy cantholysis then was created first utilizing a hemostat followed by excision with Espinoza scissors out to the periosteal rim. A lateral tarsal strip was created utilizing a combination of sharp and blunt dissection with Jennie scissors, as well as 15 blade. Once the lateral tarsal strip was created, double armed 5-0 goretex suture was utilized to attach the lateral tarsal strip to the lateral temporal periorbital periosteum. The tarsal was adjusted until adequate aposition of the lid to globe was achieved and sutured in place. The skin was then closed with 6-0 plain suture. Erythromycin ointment was placed on the wound. The identical procedure was completed on the Left Lower Lid. The patient tolerated the procedure well and will be followed up.
[2022-03-03 15:15] VITALS: BP 144/67; PULSE 61; RESP 20; TEMP 36.8; O2SAT 97
[2022-03-03 15:30] VITALS: BP 140/65; PULSE 58; RESP 20; TEMP 36.8; O2SAT 98
== END 2022-03-03 15:40 | disposition home or self-care (01) ==
PROVIDERS: PCP Internal Medicine; Visit Provider Ophthalmology
PROC: (CPT 67924; principal; 2022-03-03 13:40)
DX: H02.032 Senile entropion of right lower eyelid (principal); H02.035 Senile entropion of left lower eyelid; H40.1133 Primary open-angle glaucoma, bilateral, severe stage; I10 Essential (primary) hypertension; E11.9 Type 2 diabetes mellitus without complications; Z96.1 Presence of intraocular lens; E78.00 Pure hypercholesterolemia, unspecified; Z86.711 Personal history of pulmonary embolism; Z79.01 Long term (current) use of anticoagulants; Z79.84 Long term (current) use of oral hypoglycemic drugs; Z79.899 Other long term (current) drug therapy
CPT/HCPCS: 67924; 82947; J2250